=== PATIENT | male | born 1960 | race Caucasian/White ===

== ENCOUNTER 2018-05-23 10:03 | Emergency (ER) | payer SELFPAY ==
--- NOTE | 2018-05-23 12:28 | ER Document Report ---
HPI - HPI Patient complains to provider of: infected bite Onset: Other - 3 days Onset/Duration: Gradual Pain Level: 5 Context: 57-year-old male possibly bitten by something in his left deltoid area 3 days ago. It is gotten bigger and redder and more pain to the area. Associated Symptoms: None Exacerbated by: Movement Relieved by: Denies Similar symptoms previously: No Recently seen / treated by doctor: No - ROS ROS below otherwise negative: Yes Systems Reviewed and Negative: Yes All other systems reviewed and negative - EENT EENT: DENIES: Sore Throat - CARDIOVASCULAR Cardiovascular: DENIES: Chest pain Past Medical History - General Information source: Patient - Social History Smoking Status: Current Every Day Smoker Chew tobacco use (# tins/day): No Frequency of alcohol use: Occasional Drug Abuse: None Lives with: Friend Family History: Reviewed & Not Pertinent Patient has suicidal ideation: No Patient has homicidal ideation: No - Medical History Medical History: Negative Renal/ Medical History: Denies: Hx Peritoneal Dialysis Surgical Hx: Negative Vertical Provider Document - CONSTITUTIONAL Agree With Documented VS: Yes Exam Limitations: No Limitations - INFECTION CONTROL TRAVEL OUTSIDE OF THE [place] IN LAST 30 DAYS: No - NEURO Level of Consciousness: Awake - DERM Notes: Indurated warm rash that measures 8 cm left deltoid, center with fine vesicles Course - Re-evaluation Re-evalutation: 05/23/18 Ultrasound at the bedside by Dr. Spangler and there is no fluid collection for incision and drainage will treat for cellulitis - Vital Signs Vital signs: Temp Pulse Resp BP Pulse Ox 98.2 F 81 14 155/85 H 98 05/23/18 10:19 05/23/18 10:19 05/23/18 10:19 05/23/18 10:19 05/23/18 10:19 Discharge - Discharge Clinical Impression: insect or spider bite Cellulitis Qualifiers: Site of cellulitis: extremity Site of cellulitis of extremity: upper extremity Laterality: left Qualified Code(s): L03.114 - Cellulitis of left upper limb Condition: Good Disposition: HOME, SELF-CARE Instructions: Acetaminophen, Cellulitis ([facility]), Cephalexin ([facility]), Ibuprofen ( General) ([facility]), Trimethoprim-Sulfa ([facility]), Warm Packs ([facility]) Additional Instructions: warm compress Sling to elevate the extremity If the redness spreads past the purple line or you develop fever chills or overall feeling bad return to the emergency room Antibiotics until completed Avoid the sun while on the Prescriptions: Ibuprofen [Motrin 600 mg Tablet] 600 mg PO Q8HP PRN #30 tablet PRN Reason: Cephalexin Monohydrate [Keflex 500 mg Capsule] 500 mg PO QID #28 capsule Sulfamethoxazole/Trimethoprim [Sulfamethoxazole-Tmp Ds Tablet] 1 each PO BID # 14 tablet Forms: Return to Work
[2018-05-23 13:14] VITALS: BP 147/84
== END 2018-05-23 13:13 | disposition home or self-care (01) ==
LOC: ER 10:03
DX: L03.114 Cellulitis of left upper limb (principal); S40.862A Insect bite (nonvenomous) of left upper arm, initial encounter; W57.XXXA Bitten or stung by nonvenomous insect and other nonvenomous arthropods, initial encounter; F17.200 Nicotine dependence, unspecified, uncomplicated
CPT/HCPCS: 99283